=== PATIENT | male | born 1945 | race Native Hawaiian/Other Pacific Islander ===

== ENCOUNTER 2017-11-26 09:26 | Day surgery (SDC) | payer SELFPAY ==
[~2017-11-26 09:26] MED LIST: CHONDR SU A NA/HYALUR INTRAOC KIT (SURGICARE) ONE; EPINEPHRINE INJ/PF 1 MG/1 ML AMPULE ONE; KETOROLAC TROMETHAMINE 0.45% 4 DROP/0.4 ML DROPERETTE OS PRN; LIDOCAINE 1%/PHENYLEPHRINE 1.5% 1 ML VIAL ONE
[2017-11-26] MEDS: TROPICAMIDE 1% OPH SOLN 3 ML OS PRN ×3 (10:05→10:25)
[2017-11-26] MEDS: TETRACAINE HCL 0.5% OPH SOLN 4 ML OS PRN ×3 (10:05→10:43)
[2017-11-26] MEDS: BESIFLOXACIN HCL 0.6% OPH SUSP 5 ML BOTTLE OS PRN ×3 (10:05→11:09)
[2017-11-26] MEDS: CYCLOPENTOLATE 0.2%/PHENYLEPHRINE 1% OPH SOLN 2 ML OS PRN ×3 (10:05→10:25)
[2017-11-26] MEDS ORDERED: FENTANYL CITRATE INJ/PF 100 MCG/2 ML AMPUL ONE (10:07)
[2017-11-26] MEDS ORDERED: MIDAZOLAM 2 MG/2 ML INJ ONE (10:07)
--- NOTE | 2017-11-26 16:11 | [facility] DISCHARGE SUMMARY E ---
[facility] Discharge Summary NAME: SUSAN FRANCOIS AGE: 72Y ADMITTED: 11/26/2017 DISCHARGED: 11/26/2017 DIAGNOSIS: CATARACT, LEFT EYE. SUMMARY: This is a 72-year-old male who underwent cataract extraction, left eye. He underwent the surgery because he was having difficulty with increased glare from headlights at night and trouble seeing words on the television. DISCHARGE INSTRUCTIONS: He should be on a regular diet, no bending at her waist, and no heavy lifting. He should use Besivance, Durezol, and Ilevro at 3 p.m. and 8 p.m., and sleep with a Rigid shield. I will see for his 1 day postoperative tomorrow. DICTATING PHYSICIAN: ELLA CARR M.D. [id number] PHY#: [id number] ID: [id number] JOB#: [id number] ACCT: [id number] cc:ELLA CARR M.D. >
--- NOTE | 2017-11-26 16:11 | [facility] OPERATIVE REPORT E ---
[facility] Operative Report NAME: SUSAN FRANCOIS AGE: 72Y DATE OF SURGERY: 11/26/2017 ROOM: PREOPERATIVE DIAGNOSIS: CATARACT, LEFT EYE. POSTOPERATIVE DIAGNOSIS: CATARACT, LEFT EYE. OPERATION: Cataract extraction with insertion of an IOL of the left eye. SURGEON: ELLA CARR M.D. ANESTHESIA: Topical. PROCEDURE: After obtaining appropriate consent, the patient's left eye was prepped and draped in sterile fashion as well as the surgeon in a sterile manner and cataract surgery was started. First a paracentesis blade was used to make a side-port incision. Viscoelastic was used to inflate the anterior chamber. Next a 2.4 mm incision was made with a 2.4 mm blade, clear corneal temporally. A continuous capsulorrhexis was made using a cystotome and Utrata forceps. Following this hydrodissection was carried out to make the lens fully loose and mobile and it was rotated 90 degrees. Following this, a byndmj-ike-acvysbg technique was used to phacoemulsify the lens with a CDE of 15.01. The remaining cortex was removed with irrigation/aspiration. Provisc was instilled into the capsular bag to inflate the bag. A SN60WF, 22.5 diopter lens was placed. The remaining viscoelastic material was removed with irrigation/aspiration. Following this, the incision was found to be watertight. Besivance was instilled into the eye and a protective shield was placed over the eye. The patient returned to the postoperative recovery in stable condition. DICTATING PHYSICIAN: ELLA CARR M.D. [id number] PHY#: [id number] ID: [id number] JOB#: [id number] ACCT: [id number] cc:ELLA CARR M.D. >
== END 2017-11-26 12:21 | disposition home or self-care (01) ==
LOC: SC 09:26
PROVIDERS: ATTEND Internal Medicine
DX: H25.89 Other age-related cataract (principal); I10 Essential (primary) hypertension; J30.2 Other seasonal allergic rhinitis; Z87.891 Personal history of nicotine dependence; Z79.82 Long term (current) use of aspirin; Z79.899 Other long term (current) drug therapy
CPT/HCPCS: 66984; V2632; J2250; J3490 ×2; J0171; J3010; J2370